=== PATIENT | female | born 1950 | race Caucasian/White ===

== ENCOUNTER → 2020-08-24 | Outpatient (CLI) | payer MEDICARE | END | disposition home or self-care (01) | LOC: RAH 10:58 | PROVIDERS: ATTEND Physical Medicine & Rehabilitation | DX: M41.83 Other forms of scoliosis, cervicothoracic region (principal); M50.33 Other cervical disc degeneration, cervicothoracic region; M51.37 Other intervertebral disc degeneration, lumbosacral region | CPT/HCPCS: 72050; 72114 ==

== ENCOUNTER → 2020-09-09 | Outpatient (CLI) | payer MEDICARE | END | disposition home or self-care (01) | LOC: RAH 07:33 | PROVIDERS: ATTEND Physical Medicine & Rehabilitation | DX: M48.061 Spinal stenosis, lumbar region without neurogenic claudication (principal); M25.78 Osteophyte, vertebrae; M46.46 Discitis, unspecified, lumbar region; M48.07 Spinal stenosis, lumbosacral region | CPT/HCPCS: 72148 ==

== ENCOUNTER → 2020-09-26 | Outpatient (CLI) | payer MEDICARE | END | disposition home or self-care (01) | LOC: RAH 07:56 → EDSEX 07:56 | PROVIDERS: ATTEND Physical Medicine & Rehabilitation | DX: M47.812 Spondylosis without myelopathy or radiculopathy, cervical region (principal); M50.323 Other cervical disc degeneration at C6-C7 level; M48.02 Spinal stenosis, cervical region | CPT/HCPCS: 72141 ==

== ENCOUNTER 2020-10-28 09:00 | Observation (INO) | payer MEDICARE ==
[~2020-10-28] VITALS: Ht 180.3 cm; Wt 77.2 kg
[2020-10-31 11:13] LABS: CREATININE 0.9 mg/dL (0.5-1.5); POTASSIUM 4.6 mmol/L (3.5-5.1)
[2020-10-31 11:19] LABS: BASOPHILS % (AUTO) 1.1 % (0.0-5.0); EOSINOPHILS % (AUTO) 4.3 % (0.0-8.0); HEMATOCRIT 40.1 % (42-54); LYMPHOCYTES % (AUTO) 37.3 % (21.0-51.0); MEAN CORPUSCULAR HGB CONC 33.4 g/dL (32.0-36.0); MEAN CORPUSCULAR VOLUME 101.8 fL (79-99); MONOCYTES % (AUTO) 9.5 % (3.0-13.0); NEUTROPHILS % (AUTO) 47.6 % (40.0-77.0); PLATELET COUNT (AUTO) 185 K/uL (130-400); RED BLOOD CELL COUNT(AUTO) 3.94 MIL/uL (4.50-6.20); RED CELL DISTRIBUTION WIDTH 12.6 % (11.0-15.5); WHITE BLOOD COUNT (AUTO) 5.4 K/uL (4.8-10.8)
[2020-11-02] MEDS ORDERED: MULT-1367 PO (09:57)
[2020-11-02] MEDS ORDERED: FISH1CAP27 PO (09:57)
[2020-11-02] MEDS ORDERED: POTA99TA21 PO (09:57)
[2020-11-02] MEDS ORDERED: CHOL-34 PO (09:57)
[2020-11-02] MEDS ORDERED: ASCO-440 PO (09:57)
[2020-11-02] MEDS ORDERED: MAGN400C PO (09:57)
[2020-11-02] MEDS ORDERED: ASPI-1197 PO (09:57)
[2020-11-02] MEDS ORDERED: CYAN50009 PO (09:57)
[2020-11-02 09:59] VITALS: BP 132/66
[2020-11-03] VITALS (23 sets, daily range): BP systolic 101–168; BP diastolic 44–99
[2020-11-03] MEDS: CEFAZOLIN SODIUM 1 GM VIAL IVP SCH ×5 (06:00→19:24)
[2020-11-03] MEDS ORDERED: THROMBIN-JMI 20000 UNIT KIT TP ONE (06:17)
[2020-11-03] MEDS ORDERED: CEFAZOLIN SODIUM 1 GM VIAL ONE (06:17)
[2020-11-03] MEDS ORDERED: BUPIVACAINE/EPI/PF 0.25% 30ML VIAL IJ ONE (06:17)
[2020-11-03] MEDS ORDERED: LACTATED RINGERS 1000ML 1,000 ML IV ONE (06:28)
[2020-11-03] MEDS ORDERED: LIDOCAINE PF 100MG/5ML (2%) SYRINGE 5ML ONE (07:20)
[2020-11-03] MEDS ORDERED: SUCCINYLCHOLINE CHLORIDE 20 MG/ML 10 ML VIAL ONE (07:20)
[2020-11-03] MEDS ORDERED: FENTANYL CITRATE PF 50 MCG/1 ML 2ML VIAL ONE (07:21)
[2020-11-03] MEDS ORDERED: ROCURONIUM 10MG/1ML SYR 10 MG/ML ML ONE (07:21)
[2020-11-03] MEDS ORDERED: PROPOFOL 10 MG/ML 20ML VIAL IV ONE (07:21)
[2020-11-03] MEDS ORDERED: MANNITOL 20% 500ML BAG 500 ML IV ONE (07:37)
[2020-11-03] MEDS ORDERED: GLYCOPYRROLATE 1 MG/5 ML SYRINGE ONE (08:22)
[2020-11-03] MEDS ORDERED: NEOSTIGMINE 5MG/5ML SYR IV ONE (10:14)
[2020-11-03] MEDS ORDERED: DEXAMETHASONE SOD PHOSPHATE 10MG/ML 1ML VIAL ONE (10:28)
[2020-11-03] MEDS ORDERED: MORPHINE 2 MG SYG IVP PRN (10:30)
[2020-11-03] MEDS ORDERED: 0.9%NACL 10ML VIAL IVP PRN (10:30)
[2020-11-03] MEDS ORDERED: HYDROCODONE/ACETAMINOPHEN 5/325 MG TAB PO PRN (10:30)
[2020-11-03] MEDS: DEXAMETHASONE SOD PHOSPHATE 4 MG/ML 1ML VIAL IVP SCH ×3 (10:30→23:17)
[2020-11-03] MEDS: LACTATED RINGERS 1000ML 1,000 ML IV SCH ×2 (10:30→19:25)
[2020-11-03] MEDS ORDERED: PROMETHAZINE HCL 25 MG/ML 1ML AMPULE IM PRN (10:30)
[2020-11-03] MEDS ORDERED: MEPERIDINE-PF 25 MG/ML SYG ONE ×2 (10:56→11:09)
[2020-11-03] MEDS ORDERED: KETOROLAC 30MG VIAL (30MG/ML) ONE (11:12)
[2020-11-04 00:19] VITALS: BP 136/50
[2020-11-04 04:28] VITALS: BP 139/65
[2020-11-04] MEDS: DEXAMETHASONE SOD PHOSPHATE 4 MG/ML 1ML VIAL IVP SCH (05:02)
[2020-11-04 08:16] VITALS: BP 146/68
[2020-11-04] MEDS ORDERED: MULTIVITAMIN TABLET PO SCH (09:00)
[2020-11-04] MEDS ORDERED: MAGNESIUM OXIDE 400 MG TABLET PO SCH (09:00)
[2020-11-04] MEDS ORDERED: POTASSIUM GLUCONATE 99 MG PO SCH (09:00)
[2020-11-04] MEDS ORDERED: CYANOCOBALAMIN (VITAMIN B-12) 1,000 MCG TABLET PO SCH (09:00)
[2020-11-04] MEDS ORDERED: FISH OIL 1000 MG/CAP PO SCH (09:00)
[2020-11-04] MEDS ORDERED: ASPIRIN 81MG CHEW TAB PO SCH (09:00)
[2020-11-04] MEDS ORDERED: ASCORBIC ACID 500 MG TAB PO SCH (09:00)
[2020-11-04] MEDS ORDERED: **HM** VIT D3 25MCG PO SCH (09:00)
== END 2020-11-04 09:45 | disposition home or self-care (01) ==
LOC: EDSTATUS 10-31 09:00 → DAHIP 11-03 05:55 → 4AH 11-03 11:54
PROVIDERS: ADMIT Neurological Surgery; ATTEND Neurological Surgery
DX: M48.061 Spinal stenosis, lumbar region without neurogenic claudication (principal); M48.02 Spinal stenosis, cervical region; M25.78 Osteophyte, vertebrae; R53.1 Weakness
CPT/HCPCS: 36415; 63075; 72020; 80048; 85025; 87635; 96361; 96374; 96376 ×2; A4215; A4216; A4221; A4222; A4223 ×2; A4344; A4510; A4600; A4649 ×3; A4663; C1713; C9803; G0378 ×23; J0330; J0690 ×3; J1100 ×5; J1885; J2001; J2175 ×2; J2704; J2710; J3010; J3490 ×3; J7030 ×2; J7120 ×4; 96375

== ENCOUNTER → 2020-12-01 | Outpatient (CLI) | payer MEDICARE ==
[~2020-12-01] MED LIST: ASCO-440 PO; ASPI-1197 PO; CHOL-34 PO; CYAN50009 PO; FISH1CAP27 PO; MAGN400C PO; MULT-1367 PO; POTA99TA21 PO
== END | disposition home or self-care (01) ==
LOC: RAH 09:02
PROVIDERS: ATTEND Neurological Surgery
DX: M43.22 Fusion of spine, cervical region (principal); M47.812 Spondylosis without myelopathy or radiculopathy, cervical region
CPT/HCPCS: 72040

== ENCOUNTER → 2024-12-04 | Outpatient (CLI) | payer MEDICARE ==
[~2024-12-04] MED LIST changes: -POTA99TA21 PO; +POTA99TA26 PO
--- NOTE | 2024-12-04 12:35 | HMCIMG ---
BILATERAL HIP, INCLUDING AP PELVIS, RADIOGRAPHS - 2 VIEWS INDICATION: Pain COMPARISON: None FINDINGS: AP and frog leg of the pelvis No acute fracture or subluxation identified. Both femoral heads are well formed without osteochondral erosion or radiographic evidence for avascular necrosis. No radiopaque foreign body noted. There is mild osteopenia. IMPRESSION: No evidence for fracture or dislocation.
--- NOTE | 2024-12-04 14:16 | HMCIMG ---
CERVICAL SPINE RADIOGRAPHS - 2-3 VIEWS INDICATION: Pain COMPARISON: None FINDINGS: AP, lateral, and odontoid views. There is anterior cervical disc fusion with orthopedic plate and disc spacers seen at C3-C4. There is hypolordosis cervical spine suggesting muscle spasm. No acute fracture or malalignment identified. The flexion and extension radiographs demonstrate no malalignment. Prevertebral soft tissues are not swollen. The atlanto-dens interval is within normal limits for patient's age. Spot view of the odontoid is without evidence for fracture. Vertebral body heights are within normal limits. The multilevel disc disease and osteoarthritic changes most pronounced at lower cervical spine at C6-C7 followed by C5-C6 followed by C4-C5. Visible lung apices are clear. IMPRESSION: No acute fracture or subluxation identified. Hypolordosis cervical spine suggesting muscle spasm Osteoarthritic changes and disc disease of the lower cervical spine Anterior cervical disc fusion with disc spacers seen at C3-C4 Osteopenia
--- NOTE | 2024-12-04 14:31 | HMCIMG ---
LUMBAR SPINE RADIOGRAPHS - 4 VIEWS including flexion and extension INDICATION: Back pain COMPARISON: None FINDINGS: AP, lateral, and coned-down lateral views. Normal lordotic curvature of the lumbar spine is maintained. Five nonrib-bearing lumbar vertebral bodies are noted. Flexion and extension radiographs demonstrate no evidence of any malalignment. No acute fracture or subluxation identified. Vertebral body heights are well-maintained. There is disc disease with loss of disc height at L5-S1.. IMPRESSION: Disc disease with loss of disc height at L5-S1. On flexion extension radiograph no evidence of malalignment.
== END | disposition home or self-care (01) ==
LOC: RAH 11:02
PROVIDERS: ATTEND Physical Medicine & Rehabilitation
DX: M47.812 Spondylosis without myelopathy or radiculopathy, cervical region (principal); M51.370 Other intervertebral disc degeneration, lumbosacral region with discogenic back pain only; M50.321 Other cervical disc degeneration at C4-C5 level; M50.322 Other cervical disc degeneration at C5-C6 level; M50.323 Other cervical disc degeneration at C6-C7 level; M48.062 Spinal stenosis, lumbar region with neurogenic claudication; M53.82 Other specified dorsopathies, cervical region; M43.22 Fusion of spine, cervical region; M43.8X6 Other specified deforming dorsopathies, lumbar region; M21.70 Unequal limb length (acquired), unspecified site; R29.2 Abnormal reflex; M85.88 Other specified disorders of bone density and structure, other site; Z98.1 Arthrodesis status
CPT/HCPCS: 72050; 72114; 73521

== ENCOUNTER → 2024-12-16 | Outpatient (CLI) | payer MEDICARE ==
--- NOTE | 2024-12-17 12:43 | HMCIMG ---
EXAM: MR Cervical Spine Without Intravenous Contrast. CLINICAL HISTORY: Arthrodesis status. TECHNIQUE: Magnetic resonance images of the cervical spine in multiple planes. CONTRAST: None. COMPARISON: MRI dated 09/26/20. FINDINGS: The imaged posterior fossa is unremarkable. The craniocervical junction is intact. Anterior cervical fixation hardware and intervertebral disc spacer at the C3-C4 levels. No acute fracture. Mild dextroscoliosis. Reversal of the normal cervical lordosis, possibly paraspinal muscle spasm versus degenerative change. Multilevel spondylosis is evident by marginal osteophytes and facet joint arthropathy. Multilevel disc desiccation and degenerative disc height reduction were noted, more pronounced at the C6-C7 level. Normal vertebral body heights. Modic type II changes in the anterior corners of the contiguous endplates at the C7-T1 level. The cervical cord is in an anatomic location. Myelomalacia was noted in the cervical cord for a length of approximately 1.7 cm at the C3-C4 levels. No extra-axial masses. The surrounding soft tissues are unremarkable. Level by level, disease is present as follows: C1-C2: No osteoarthritis. C2-C3: 2 mm disc osteophyte complex bulge causing mild indentation on the anterior thecal sac. No neural foraminal or lateral recess stenosis. C3-C4: 2 mm marginal osteophytes causing mild indentation on the anterior thecal sac and moderate bilateral foraminal narrowing. No lateral recess stenosis. C4-C5: 3 mm disc osteophyte complex bulge causing mild indentation on the anterior thecal sac and mild bilateral foraminal narrowing. No lateral recess stenosis. C5-C6: 3 mm disc osteophyte complex bulge causing mild indentation on the anterior thecal sac. No neural foraminal or lateral recess stenosis. C6-C7: No disc bulge or herniation. No neural foraminal, lateral recess, or spinal canal stenosis. C7-T1: 4 mm disc osteophyte complex bulge causing mild indentation on the anterior thecal sac, mild right foraminal narrowing, and mild to moderate left foraminal narrowing. No lateral recess stenosis. IMPRESSION: Anterior cervical fixation hardware and intervertebral disc spacer at the C3-C4 levels. New finding. Mild dextroscoliosis. Stable. Reversal of the normal cervical lordosis, possibly paraspinal muscle spasm versus degenerative change. Stable. Moderate multilevel spondylosis and degenerative disc changes. Stable. Modic type II changes in the anterior corners of the contiguous endplates at the C7-T1 level. Stable. Myelomalacia in the cervical cord for a length of approximately 1.7 cm at the C3-C4 levels. Stable. Mild indentation on the anterior thecal sac at the C2-C3 and C5-C6 levels. Stable. Mild indentation on the anterior thecal sac and moderate bilateral foraminal narrowing at the C3-C4 level. Significant interval improvement in the canal and bilateral foraminal narrowing. Mild indentation on the anterior thecal sac and mild bilateral foraminal narrowing at the C4-C5 level. Stable. Mild indentation on the anterior thecal sac, mild right foraminal narrowing, and mild to moderate left foraminal narrowing at the C7-T1 level. Stable. /[place]
== END | disposition home or self-care (01) ==
LOC: RAH 09:04
PROVIDERS: ATTEND Physical Medicine & Rehabilitation
DX: M47.812 Spondylosis without myelopathy or radiculopathy, cervical region (principal); M50.33 Other cervical disc degeneration, cervicothoracic region; M48.03 Spinal stenosis, cervicothoracic region; M41.82 Other forms of scoliosis, cervical region; M25.78 Osteophyte, vertebrae; M53.82 Other specified dorsopathies, cervical region; G95.89 Other specified diseases of spinal cord; R29.2 Abnormal reflex; Z98.1 Arthrodesis status
CPT/HCPCS: 72141

== ENCOUNTER → 2025-01-22 | Outpatient (CLI) | payer MEDICARE ==
--- NOTE | 2025-01-22 19:15 | HMCIMG ---
EXAM: MR Lumbar Spine Without Intravenous Contrast. CLINICAL HISTORY: Lumbar spinal stenosis. ? Discitis at L5-S1 level. TECHNIQUE: Magnetic resonance images of the lumbar spine in multiple planes. CONTRAST: None. COMPARISON: MRI dated 09/09/20. FINDINGS: For this examination, spinal levels were labeled assuming five non-rib bearing, lumbar-type vertebrae with the inferior labeled L5. No acute fracture. S-shaped thoracolumbar scoliosis. Mild degenerative anterolisthesis of L4 over L5. Multilevel spondylosis is evident by marginal osteophytes, Schmorl???s nodes, and facet joint arthropathy. Multilevel disc desiccation and degenerative disc height reduction noted, more pronounced at the L5-S1 level. Moderate facet joint synovitis at the L4-L5 level. Normal vertebral body heights. Modic type I changes in the contiguous endplates at the L5-S1 level. Conus medullaris terminates at the L1 level. No abnormal epidural masses. The surrounding soft tissues are unremarkable. Individual spinal levels are described as follows: T12-L1: No disc bulge or herniation. No neural foraminal, lateral recess or spinal canal stenosis. L1-L2: No disc bulge or herniation. No neural foraminal, lateral recess or spinal canal stenosis. L2-L3: 5 mm disc osteophyte complex bulge causing mild indentation on the anterior thecal sac and mild bilateral foraminal narrowing. No lateral recess stenosis. L3-L4: 6 mm disc osteophyte complex bulge, ligamentum flavum thickening, and facet joint arthropathy causing mild canal narrowing and mild bilateral foraminal narrowing. No lateral recess stenosis. L4-L5: 6 mm disc osteophyte complex bulge, ligamentum flavum thickening, and facet joint arthropathy causing mild to moderate canal narrowing with clumping of the cauda equina and mild to moderate bilateral foraminal narrowing. No lateral recess stenosis. L5-S1: 6 mm disc osteophyte complex bulge, ligamentum flavum thickening, and facet joint arthropathy causing mild canal narrowing and moderate bilateral foraminal narrowing with indentation on the exiting bilateral L5 nerve roots. No lateral recess stenosis. IMPRESSION: Modic type I changes in the contiguous endplates at the L5-S1 level. No obvious evidence of spondylodiscitis. S-shaped thoracolumbar scoliosis. Mild degenerative anterolisthesis of L4 over L5. Moderate multilevel spondylosis and degenerative disc changes. Moderate facet joint synovitis at the L4-L5 level. Mild indentation on the anterior thecal sac and mild bilateral foraminal narrowing at the L2-L3 level. Mild canal narrowing and mild bilateral foraminal narrowing at the L3-L4 level. Mild to moderate canal narrowing with clumping of the cauda equina and mild to moderate bilateral foraminal narrowing at the L4-L5 level. Mild canal narrowing and moderate bilateral foraminal narrowing with indentation on the exiting bilateral L5 nerve roots at the L5-S1 level. Complete resolution of the endplate edema around the Schmorl???s nodes at the L1-L3 vertebral endplates and significant interval resolution of the endplate edema at the L5-S1 level. /[place]
== END | disposition home or self-care (01) ==
LOC: RAH 08:42
PROVIDERS: ATTEND Physical Medicine & Rehabilitation
DX: M47.817 Spondylosis without myelopathy or radiculopathy, lumbosacral region (principal); M48.07 Spinal stenosis, lumbosacral region; M48.062 Spinal stenosis, lumbar region with neurogenic claudication; M51.379 Other intervertebral disc degeneration, lumbosacral region without mention of lumbar back pain or lower extremity pain; M43.16 Spondylolisthesis, lumbar region; M41.86 Other forms of scoliosis, lumbar region; M25.78 Osteophyte, vertebrae; M65.88 Other synovitis and tenosynovitis, other site
CPT/HCPCS: 72148